=== PATIENT | female | born 1990 | race Caucasian/White ===

== ENCOUNTER 2016-06-27 18:23 | Outpatient (CLI) | payer OTHER ==
[~2016-06-27] VITALS: Ht 172.7 cm; Wt 97.0 kg
[2016-06-27] MEDS ORDERED: PRENTAB9 PO (18:31)
[2016-06-27 18:42] VITALS: BP 122/82
== END 2016-06-27 20:48 | disposition home or self-care (01) ==
LOC: M LDO 18:23
PROVIDERS: ATTEND Student in an Organized Health Care Education/Training Program
DX: O26.893 Other specified pregnancy related conditions, third trimester (principal); Z3A.27 27 weeks gestation of pregnancy

== ENCOUNTER 2016-09-16 23:35 | Outpatient (CLI) | payer OTHER ==
[~2016-09-16] VITALS: Ht 172.7 cm; Wt 103.0 kg
[~2016-09-16 23:35] MED LIST: PRENTAB9 PO
--- NOTE | 2016-09-17 01:51 | IPNPDOC ---
Text Note Date of Service The patient was seen on 09/17/16. NOTE Subjective: Pt is a 25yo with a kim IUP at 39w1d who presents to triage c/o decreased movement. She called the triage line stating she was having occasional ctx all day so didn't really register the baby's movements at all. Then, when she ate and drank and sat for two hours she only got 1 movement. ROS: Admits: adequate hydration Denies: fever, chills, vaginal bleeding/discharge/Loss of fluid, urinary symptoms, recent illness Objective: VSS NST: FHT 135 with moderate variability, +accels, -decels. Reactive NST. [place]: ctx q5-7 min Physical Exam: General: WDWN gravid female in NAD Mental: A&Ox3 Abdomen: Gravid abdomen without tenderness in any quadrant. SCE with RN as medicaid service coordinator: /-2, soft multiparous cervix TAUS: kim IUP, positive FCA and FM, placenta anterior, cephalic presentation, CYNTHIA 9.5cm. Assessment: Pt is a 25yo with a kim IUP at 39w1d with active movement on US. CYNTHIA 9.5cm. Reactive NST with ctx q5-7min. SCE /-2. Plan: -f/u as scheduled in OB clinic on Tuesday -Work note given -kick counts prn -Nurse further educated pt on how to perform kick counts. -encouraged adequate hydration -Discussed term labor and decreased movement precautions -return to L&D triage for any concerns -Medical reconciliation reviewed Dr. Wong Brown MD Staff Physician, WONG BERNSTEIN MD Sep 17, 2016 01:51
== END 2016-09-17 01:41 | disposition home or self-care (01) ==
LOC: M LDO 23:35
PROVIDERS: ATTEND Obstetrics & Gynecology
DX: O36.8130 Decreased fetal movements, third trimester, not applicable or unspecified (principal); Z3A.39 39 weeks gestation of pregnancy

== ENCOUNTER 2016-09-28 15:22 | Inpatient (IN) | payer OTHER ==
[~2016-09-28] VITALS: Ht 170.2 cm; Wt 101.0 kg
[2016-09-28] VITALS (15 sets, daily range): BP systolic 119–155; BP diastolic 56–87
[2016-09-28] MEDS ORDERED: LR 1,000 ML IV SCH (16:56)
[2016-09-28] MEDS ORDERED: LACTATED RINGER'S 1000 ML IV ONE (17:00)
[2016-09-28] MEDS ORDERED: OXYTOCIN 30 UNITS IN 0.9% NaCl 500ML IV BAG (J2590) As Ordered ONE ×2 (17:11→23:37)
[2016-09-28 17:29] LABS: MEAN CORPUSCULAR HEMOGLOBIN 28.3 pg (27.0-33.0); MEAN CORPUSCULAR HGB CONC 34.2 g/dl (32.0-36.5); MEAN CORPUSCULAR VOLUME 82.8 fl (80.0-96.0); RED CELL DISTRIBUTION WIDTH 15.7 % (11.5-14.5); WHITE BLOOD COUNT 28.3 K/mm3 (4.0-10.0)
[2016-09-28] MEDS ORDERED: FENTANYL 2MCG/ML ROPIVACAINE 0.2% IN 0.9% NACL 200ML IVBAG As Ordered ONE (17:41)
[2016-09-28] MEDS ORDERED: EPIDURAL COMMENT XX SCH (18:45)
[2016-09-28] MEDS ORDERED: EPIDURAL/PCA KEYS XX PRN (18:45)
[2016-09-28] MEDS ORDERED: LACTATED RINGER'S 1000 ML IV PRN (18:45)
[2016-09-28] MEDS ORDERED: FENTANYL/ROPIVACAINE/NACL BAG 200 ML EPIDURAL SCH (18:45)
[2016-09-28] MEDS ORDERED: ePHEDrine SULFATE 25 MG/5 ML(5MG/ML) SYRINGE IV PRN (18:45)
[2016-09-28] MEDS ORDERED: diphenhydrAMINE INJ 50MG/ML VIAL (J1200) IV PRN (18:45)
[2016-09-28] MEDS ORDERED: ONDANSETRON 4MG/2ML VIAL (J2405) IV PRN (18:45)
[2016-09-28] MEDS ORDERED: NALOXONE INJ 0.4 MG/1 ML VIAL (J2310) IV PRN (18:45)
[2016-09-28] MEDS ORDERED: REFRIGERATOR IV KEYS XX PRN (18:45)
--- NOTE | 2016-09-28 19:24 | HPE ---
DATE OF ADMISSION: 09/28/2016 This lady is a 25-year-old, looking older than stated age, 2, para 1, LMP 12/16/2015, EDC 09/24/2016 at 40 and 4 weeks of gestation in active labor, 8 cm, GBS negative. Risk factors is she had an elevated 1-hour glucose, normal 3-hour GTT, Rh negative, received RhoGAM 07/23/2016. Pap smear shows ascus Past history 01/2015 at 39 weeks spontaneous vaginal delivery female, 6 pounds 1 ounce. Labs are A negative, HIV negative, hep negative, RPR negative, rubella immune. Varicella immune. Pap was ascus. Urine was negative. Gonorrhea and chlamydia negative. 1-hour glucose 139, 3-hour glucose fasting 92, 1-hour 153, 2-hour 94 and 3-hour 90. GBS negative. Her blood pressure is 122/76, respirations are 20, pulse 105 and temperature 97.7. Urine is 1005 plus 2 leuks and trace of glucose. On physical examination being distressed. Symphysis fundus height is appropriate 40, vertex OA -1 station, 8-9 cm, bulging membranes, 100% effaced. The rest of the examination is unremarkable. Normocephalic, atraumatic. Neck: Full range of motion. Pupils equal and reactive to light. Distal pulses symmetric. No evidence of DVT, PE or superficial phlebitis. No wheezes or rhonchi and lungs are clear to bases. No CVA tenderness. Four quadrant bowel sounds are noted, non tender. Uterus symphysis fundus height is poor. Category one strip. No rashes or lesions or pruritus. She does have tattoos. No arthralgia or myalgia. Not complaining of cough, shortness of breath or dyspnea on exertion. No allergies. No chest pain, not bleeding. Neuro complete. No incontinence, urgency, frequency, nausea, vomiting, diarrhea or constipation. Her diabetic issues are a failed 1-hour glucose and a 3-hour normal. [place]: she has an abnormal Pap smear with ascus past medical history unremarkable. Surgical history is appendix. FAMILY HISTORY: Non-contributory. She does not smoke or drink abuse drugs. 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 In summary we have an active post term gestation at 8 cm. Our plan is to hydrate, epidural, anticipate spontaneous vaginal delivery.
[2016-09-28] MEDS ORDERED: OXYTOCIN DRIP 30 UNITS in APPROPRIATE DILUENT 1 EA IV SCH (22:15)
[2016-09-28 22:54] LABS: CORD GAS ABE V -3.2; CORD GAS HCO3 V 21.7 MEQ/L; CORD GAS O2 SAT V 65.6 %; CORD GAS PCO2 V 38.7 mmHg; CORD GAS PH V 7.367 UNITS; CORD GAS SBC V 21.1 MEQ/L; CORD GAS TCO2 V 22.9 MEQ/L
[2016-09-28 22:56] LABS: CORD GAS ABE A -2.2; CORD GAS HCO3 A 23.1 MEQ/L; CORD GAS O2 SAT A 64.6 %; CORD GAS PCO2 A 41.6 mmHg; CORD GAS PH A 7.363 UNITS; CORD GAS PO2 A 25.2 mmHg; CORD GAS SBC A 21.9 MEQ/L; CORD GAS TCO2 A 24.4 MEQ/L
[2016-09-28] MEDS ORDERED: DIBUCAINE 1% OINTMENT 30GM TOP PRN (23:00)
[2016-09-28] MEDS ORDERED: MEASLES,MUMPS,RUBELLA VACCINE INJ (MMR-II) (90707) SC SCH (23:00)
[2016-09-28] MEDS ORDERED: RHOGAM 300 MCG (1500 IU) INJ (J2790) IM SCH (23:00)
[2016-09-28] MEDS ORDERED: MOM 30ML SUSPENSION UDC PO PRN (23:00)
[2016-09-28] MEDS ORDERED: ANUSOL HC CREAM 30GM TOP PRN (23:00)
[2016-09-28] MEDS ORDERED: METHYLERGONOVINE MALEATE 0.2 MG TAB PO PRN (23:00)
[2016-09-28] MEDS ORDERED: DOCUSATE SODIUM 100 MG CAP PO PRN (23:00)
[2016-09-29 00:08] VITALS: BP 140/64
[2016-09-29] MEDS ORDERED: OXYTOCIN DRIP 30 UNITS in APPROPRIATE DILUENT 1 EA IV SCH ×2 (00:15→01:00)
[2016-09-29 00:53] VITALS: BP 139/71
[2016-09-29] MEDS: IBUPROFEN 800 MG TAB PO PRN ×3 (01:09→15:39)
[2016-09-29] MEDS: ACETAMINOPHEN 500 MG TAB PO PRN ×3 (04:32→20:03)
[2016-09-29 05:55] VITALS: BP 138/66
[2016-09-29 07:03] LABS: MEAN CORPUSCULAR HEMOGLOBIN 27.9 pg (27.0-33.0); MEAN CORPUSCULAR HGB CONC 33.5 g/dl (32.0-36.5); MEAN CORPUSCULAR VOLUME 83.2 fl (80.0-96.0); RED CELL DISTRIBUTION WIDTH 15.7 % (11.5-14.5); WHITE BLOOD COUNT 23.4 K/mm3 (4.0-10.0)
[2016-09-29] MEDS: PRENATAL VITAMIN TAB PO SCH (08:46)
[2016-09-29] MEDS ORDERED: PRENTAB9 PO (16:29)
[2016-09-29 18:00] VITALS: BP 139/70
[2016-09-30] MEDS: IBUPROFEN 800 MG TAB PO PRN ×2 (00:07→08:19)
[2016-09-30] MEDS: ACETAMINOPHEN 500 MG TAB PO PRN (06:12)
[2016-09-30 06:44] VITALS: BP 132/63
--- NOTE | 2016-09-30 08:15 | IPN ---
DATE: 09/29/2016 This lady is a 25-year-old, 2, now para 2, had a spontaneous labor at 40 and 4 weeks of gestation, admitted at 8 cm dilatation. [address]ural in place, delivered a live male infant 7 pounds 11 ounces, 3410 grams, scores of 7 and 9 at 1 and 5 minutes, respectively. Arterial pH 7.36, base excess -2.2, venous pH 7.36, base excess -3.2. Her blood pressure today is 138/66, respirations 18, pulse 107, temperature 96.6. We discussed phlebitis, cystitis, mastitis, endometritis and cellulitis, diet, exercise, and pain management, perineal, breast and wound care. The is planning on having a vasectomy in the near future. She has an ASCUS Pap smear, which we dealt with at her 6-week checkup. She had an elevated 1-hour glucose but her 3-hour glucose tolerance test was normal. The patient has meds, which will be dispensed at discharge. Breast feeding is going well. Otherwise, she has no complaints and planning on discharge for tomorrow morning.
[2016-09-30] MEDS: PRENATAL VITAMIN TAB PO SCH (08:18)
[2016-09-30] MEDS ORDERED: ACET50TA PO (09:17)
[2016-09-30] MEDS ORDERED: COLA100C3 PO (09:17)
[2016-09-30] MEDS ORDERED: IBUP-1114 PO (09:17)
--- NOTE | 2016-09-30 09:33 | DN ---
DATE: 09/28/2016 This lady is 2, para 1 admitted at 8 cm in active labor. GBS negative, had an epidural in place. Artificial rupture of membranes draining meconium stained liquor, thick. Neonatology was notified and was present at delivery. At full dilatation, spontaneous vaginal delivery live male weighing 7 pounds 11 ounces, 3410 grams, scores of 7 and 9 at 1 and 5 minutes, respectively. The placenta, three vessels. Arterial and venous pH. Required a bit of manual removal to remove the fundus on the right side. Placenta was examined and membranes and found to be complete. The uterus contracted well down under Pitocin. Vagina, anterior and posterior shook and lateral shook and sphincter were intact. The patient and baby tolerating procedure well. Dr. Kothari in attendance for resuscitation.
--- NOTE | 2016-09-30 11:16 | DS.PDOC ---
Discharge Summary General Date of Admission September 28, 2016 at 16:55 Date of Discharge [id number] Discharge Summary PROCEDURES PERFORMED DURING STAY: spontaneous vaginal delivery ADMITTING DIAGNOSES: Labor DISCHARGE DIAGNOSES: 1. Healthy HOSPITAL COURSE: Admitted in active labor. Underwent an uncomplicated delivery. See delivery note. DISCHARGE MEDICATIONS: Standard meds, dispensed. Nor QD for control Physical exam: see note from this morning LABORATORY DATA: Please see below. ACTIVITY: as tolerated. Nothing in vagina for 6 weeks. No bathing for 2 weeks , shower only. DIET: regular DISPOSITION:stable TIME SPENT ON DISCHARGE: Greater than 15 minutes. Sessions Vital Signs/I&Os Vital Signs Date Time Temp Pulse Resp B/P (MAP) Pulse Ox O2 Delivery O2 Flow Rate FiO2 09/30/16 06:44 97.3 84 18 132/63 (86) 09/28/16 15:41 Room Air Discharge Medications Scheduled Multivitamins/ ( 27-0.8 mg) 1 Tab Tab, 1 TAB PO DAILY, (Reported ) Scheduled PRN Acetaminophen (Mapap) 500 Mg Tab, 1,000 MG PO Q6HP PRN for PAIN, (Reported) Docusate Sodium (Colace) 100 Mg Cap, 100 MG PO QHSP PRN for CONSTIPATION, ( Reported) Ibuprofen (Ibuprofen) 400 Mg Tab, 800 MG PO Q8HP PRN for PAIN, (Reported) Allergies Coded Allergies: No Known Allergies (Unverified , 09/28/16) SESSIONSJASWINDER MD September 30, 2016 11:16
--- NOTE | 2016-09-30 11:19 | IPNPDOC ---
Text Note Date of Service The patient was seen on 09/30/16. NOTE PPD2 prog note States feeling well, no complaints. No heavy VB. Pain controlled. Voiding, ambulatory. Bonding well and bottle feeding. plans on vasectomy, Nor QDAY until that is done. VSSAF CTAB RRR Ut at U-2, firm Ext no CCE a/p: Doing well, d/c home Sessions VS,Ricardo, I+O VSRicardo, I+O Vital Signs Date Time Temp Pulse Resp B/P (MAP) Pulse Ox O2 Delivery O2 Flow Rate FiO2 09/30/16 06:44 97.3 84 18 132/63 (86) 09/28/16 15:41 Room Air SESSIONS,JASWINDER Krishna MD September 30, 2016 11:19
== END 2016-09-30 10:09 | disposition home or self-care (01) | DRG 775 ==
LOC: M LDO 15:22 → M LDI 16:55 → M OBS 09-29 00:47
PROVIDERS: ADMIT Obstetrics & Gynecology; ATTEND Obstetrics & Gynecology
PROC: 10E0XZZ Delivery of Products of Conception, External Approach (ICD-10-PCS; principal; 2016-09-28)
PROC: 10907ZC Drainage of Amniotic Fluid, Therapeutic from Products of Conception, Via Natural or Artificial Opening (ICD-10-PCS; 2016-09-28)
DX: O48.0 Post-term pregnancy (principal); Z37.0 Single live birth; Z3A.40 40 weeks gestation of pregnancy; O77.0 Labor and delivery complicated by meconium in amniotic fluid

== ENCOUNTER 2022-01-10 01:09 | Emergency (ER) | payer OTHER ==
[~2022-01-10] VITALS: Ht 170.2 cm; Wt 98.7 kg
[~2022-01-10 01:09] MED LIST changes: +COLA100C5 PO; +IBUP-1114 PO; +MAPA500T2 PO
[2022-01-10 02:55] LABS: BASO # 0.1 10^3/uL (0.0-0.2); BASO % 0.7 % (0.0-1.0); EOS # 0.5 10^3/uL (0.0-0.5); EOS % 3.1 % (0.0-3.0); HEMATOCRIT 44.9 % (36.0-47.0); HEMOGLOBIN 14.4 g/dl (12.0-15.5); LYMPH # 5.4 10^3/uL (1.5-5.0); LYMPH % 34.2 % (24.0-44.0); MEAN CORPUSCULAR HEMOGLOBIN 28.7 pg (27.0-33.0); MEAN CORPUSCULAR HGB CONC 32.1 g/dl (32.0-36.5); MEAN CORPUSCULAR VOLUME 89.4 fl (80.0-96.0); NEUTROPHILS # 8.8 10^3/uL (1.5-8.5); NEUTROPHILS % 55.7 % (36.0-66.0); PLATELET COUNT, AUTOMATED 247 10^3/uL (150-450); RED BLOOD COUNT 5.02 10^6/uL (4.00-5.40); WHITE BLOOD COUNT 15.7 10^3/uL (4.0-10.0)
[2022-01-10 02:59] LABS: INR 0.93; PROTHROMBIN TIME 12.8 SECONDS (12.7-14.5)
[2022-01-10 03:28] LABS: ALBUMIN 3.8 GM/DL (3.2-5.2); ALT/SGPT 35 U/L (12-78); BILIRUBIN,DIRECT < 0.1 MG/DL (0.0-0.2); BILIRUBIN,TOTAL 0.2 MG/DL (0.2-1.0); BLOOD UREA NITROGEN 19 MG/DL (7-18); CARBON DIOXIDE LEVEL 27 MEQ/L (21-32); CHLORIDE LEVEL 107 MEQ/L (98-107); CREATININE FOR GFR 0.68 MG/DL (0.55-1.30); GLOMERULAR FILTRATION RATE > 60.0 (>60); GLUCOSE, FASTING 105 MG/DL (70-100); LIPASE 159 U/L (73-393); POTASSIUM SERUM 4.3 MEQ/L (3.5-5.1); SODIUM LEVEL 140 MEQ/L (136-145); TOTAL PROTEIN 7.5 GM/DL (6.4-8.2)
[2022-01-10 04:53] LABS: RSV AMPLIFICATION NEGATIVE (NEGATIVE)
[2022-01-10] MEDS ORDERED: IBUP-1022 PO (04:57)
[2022-01-10 05:38] VITALS: BP 145/98
== END 2022-01-10 05:40 | disposition home or self-care (01) ==
LOC: M ED 01:09
DX: M94.0 Chondrocostal junction syndrome [Tietze] (principal); F17.200 Nicotine dependence, unspecified, uncomplicated